=== PATIENT | female | born 1945 | race Caucasian/White ===

== ENCOUNTER 2022-11-24 05:31 | Day surgery (SDC) | payer OTHER, BC ==
[2022-11-22 08:59] VITALS: BMI 34.7
[2022-11-24 11:47] VITALS: TEMP 97.5
[2022-11-24 12:32] VITALS: BP 137/79; PULSE 68; RESP 19
== END 2022-11-24 12:43 | disposition home or self-care (01) ==
LOC: JASU-ENDO 05:31
PROVIDERS: ATTEND Internal Medicine Gastroenterology
PROC: 0DB98ZX Excision of Duodenum, Via Natural or Artificial Opening Endoscopic, Diagnostic (ICD-10-PCS; 2022-11-24)
PROC: 0DB78ZX Excision of Stomach, Pylorus, Via Natural or Artificial Opening Endoscopic, Diagnostic (ICD-10-PCS; 2022-11-24)
PROC: 0DJD8ZZ Inspection of Lower Intestinal Tract, Via Natural or Artificial Opening Endoscopic (ICD-10-PCS; principal; 2022-11-24 11:00)
DX: Z12.11 Encounter for screening for malignant neoplasm of colon (principal); K31.7 Polyp of stomach and duodenum; K31.89 Other diseases of stomach and duodenum; K57.30 Diverticulosis of large intestine without perforation or abscess without bleeding; R10.13 Epigastric pain; I10 Essential (primary) hypertension
CPT/HCPCS: 43239; G0121; 88305-TC; 88342-TC